=== PATIENT | female | born 1935 | race Caucasian/White ===

== ENCOUNTER → 2017-09-10 | Outpatient (CLI) | payer OTHER, MEDICARE ==
[~2017-09-10] MED LIST: CO Q-1010 MG PO; LOSARTAN-HCTZ1 EAC2 PO; LOSARTAN-HCTZ1 EACH; MOBIC7.5 MG PO; NAPROSYN375 MG PO; SERTRALINE HCL100 MG PO; TRAMADOL 50 MG50 MG PO; ULTRAM ER100 MG PO; VITAMIN D400 UNI1; VITAMINC500 PO
== END ==
LOC: MRI 06:25
DX: M51.36 Other intervertebral disc degeneration, lumbar region (principal); M41.86 Other forms of scoliosis, lumbar region; M48.05 Spinal stenosis, thoracolumbar region; M41.80 Other forms of scoliosis, site unspecified; M25.78 Osteophyte, vertebrae

== ENCOUNTER → 2019-07-14 | Outpatient (CLI) | payer OTHER, MEDICARE ==
[~2019-07-14] VITALS: Ht 165.1 cm; Wt 68.0 kg
[~2019-07-14] MED LIST changes: +CALCIUM500 MG PO; +LOSARTAN POTAS100 MG PO; +NORVASC5 MG PO; +VITAMIN B-121000 MC2 SUBLING
[2019-07-14 09:14] LABS: HEMATOCRIT 40.2 % (37.0-47.0); MCH 28.9 pg (26.0-34.0); MCHC 32.2 g/dL (28.0-37.0); MCV 89.8 fL (80.0-100.0); RBC 4.48 mil/uL (4.20-5.00); RDW 14.3 % (10.5-14.5); WBC 6.9 thou/uL (4.0-11.0)
[2019-07-14 09:30] LABS: CALCIUM 8.8 mg/dL (8.5-10.1); CREATININE 0.7 mg/dL (0.6-1.0); POTASSIUM 4.1 mmol/L (3.5-5.1)
[2019-07-14 09:32] LABS: PROTIME 9.8 Seconds (9.3-11.4)
[2019-07-14 09:46] LABS: URINE BILIRUBIN NEGATIVE (Negative); URINE BLOOD NEGATIVE (Negative); URINE CLARITY CLEAR; URINE COLOR YELLOW; URINE GLUCOSE-RANDOM* NEGATIVE (Negative); URINE KETONES NEGATIVE (Negative); URINE PROTEIN (DIPSTICK) NEGATIVE (Negative); URINE UROBILINOGEN 0.2 E.U./dl (0.2-1.0)
[2019-07-14 10:09] LABS: URINE LEUKOCYTES-REFLEX 3+ (Negative); URINE NITRITE-REFLEX POSITIVE (Negative)
[2019-07-14 10:29] LABS: BACTERIA-REFLEX >30 Many /HPF (None Seen); CASTS None Seen /LPF (None Seen); CRYSTALS None Seen /LPF (None Seen); SQUAMOUS 0-3 Few /LPF (0-3); URINE RBC 0-2 Rare /HPF (0-2); URINE WBC-REFLEX 6-15 Few /HPF (0-5)
--- NOTE | 2019-07-14 14:19 | EKG ---
[facility] [place] [address] ELECTROCARDIOGRAM REPORT Name: JOAO PENA Room #: PRE IN .R.#: [id number] Admission: Attend Phys: Jonatan Coulter Discharge: Date of : 33 Report #: [id number] THIS REPORT FOR: cc: Nicolle Franco MD, Ernest A. MD Couchonnal,Cruz Agrawal MD ~ THIS REPORT FOR: //name// [facility] Test Date: 2019-07-14 Test Time: 09:01:35 Pat Name: JOAO PENA Department: Room: Gender: F Rn International: erick : 1935 Requested By: Jonatan Calix Order Number: [id number] MD: Cruz Loomis Measurements Intervals [place] Rate: 72 P: 19 LA: 198 QRS: -21 QRSD: 89 T: 27 QT: 365 QTc: 400 Interpretive Statements Sinus rhythm Borderline left axis deviation Baseline wander in lead(s) I,II,aVR,aVL,aVF,V1 No previous ECG available for comparison Electronically Signed On 07-14-2019 14:18:21 CDT by Cruz Loomis [email or web address] <ELECTRONICALLY SIGNED> By: Cruz Loomis MD 07/14/19 1418 0 0 Cruz Loomis MD /EPI
== END ==
LOC: PAC 09:01 → TBA 07-23 08:15 → PRE 07-23 10:40 → TBA 07-23 14:12 → PRE 07-30 10:53 → EDSTATUS 07-30 13:04 → PRE 07-30 14:53
PROVIDERS: Orthopaedic Surgery Sports Medicine
DX: Z01.812 Encounter for preprocedural laboratory examination (principal); M75.101 Unspecified rotator cuff tear or rupture of right shoulder, not specified as traumatic